=== PATIENT | male | born 1985 | race Caucasian/White ===

== ENCOUNTER 2016-06-25 13:09 | Inpatient (IN) | payer MEDICAID ==
[~2016-06-25] VITALS: Ht 175.3 cm; Wt 100.7 kg
[2016-06-25] MEDS ORDERED: PANTOPRAZOLE 80 MG in SODIUM CHLORIDE 0.9% 100 ML IV SCH (13:40)
[2016-06-25] MEDS ORDERED: PANTOPRAZOLE 80 MG in SODIUM CHLORIDE 0.9% 50 ML IVPB ONE (13:40)
[2016-06-25] MEDS ORDERED: SODIUM CHLORIDE 0.9% 1,000 ML IV ONE ×2 (13:40→15:42)
[2016-06-25] MEDS ORDERED: SODIUM CHLORIDE FLUSH 10ML SYR IVF ONE (14:00)
[2016-06-25] MEDS ORDERED: SODIUM CHLORIDE 0.9% 1,000ML IVBOLUS ONE ×2 (14:00→16:00)
[2016-06-25] MEDS ORDERED: ONDANSETRON 2MG/ML, 2ML IVPush ONE (14:00)
[2016-06-25] MEDS ORDERED: ONDANSETRON 2MG/ML, 2ML ONE (14:14)
[2016-06-25 14:35] LABS: ASPARTATE AMINO TRANSFERASE 97 U/L (15-37); BLOOD UREA NITROGEN 73 mg/dL (7-18)
[2016-06-25 14:53] LABS: DIFF TOTAL CELLS COUNTED 100 CELL DIFF
[2016-06-25 14:57] LABS: VERIFY COUNTS? YES
[2016-06-25] MEDS ORDERED: PROMETHAZINE 25 MG/ML, 1ML ONE (15:12)
[2016-06-25] MEDS ORDERED: PROMETHAZINE 25 MG/ML, 1ML IM ONE (15:30)
[2016-06-25] MEDS ORDERED: SODIUM CHLORIDE FLUSH 10ML SYR IVF PRN (16:00)
[2016-06-25] MEDS ORDERED: morphine SULFATE 10 MG/ML, 1ML IVPush PRN (16:30)
[2016-06-25] MEDS ORDERED: POLYETHYLENE GLYCOL 17 GM PACKET PO PRN (16:30)
[2016-06-25] MEDS ORDERED: OXYcodone IR 5MG TABLET PO PRN (16:30)
[2016-06-25] MEDS ORDERED: BISACODYL 10 MG SUPP PR PRN (16:30)
[2016-06-25] MEDS ORDERED: ENALAPRILAT 1.25 MG/ML, 2ML IVPush PRN (16:30)
[2016-06-25] MEDS ORDERED: ONDANSETRON 2MG/ML, 2ML IVPush PRN (16:30)
[2016-06-25] MEDS ORDERED: DOCUSATE 100 MG CAPSULE PO PRN (16:30)
[2016-06-25] MEDS: NICOTINE 7 MG/24 HR PATCH.TD24 TD SCH (17:30)
[2016-06-25 17:50] LABS: DAU SCREEN DISCLAIMER
[2016-06-25] MEDS: D5%-0.9% NACL+KCL 20MEQ 1,000 ML IV SCH (18:32)
[2016-06-25 21:07] VITALS: BP 127/82
[2016-06-26 01:06] VITALS: BP 138/82
[2016-06-26] MEDS: PANTOPRAZOLE 80 MG in SODIUM CHLORIDE 0.9% 100 ML IV SCH ×3 (01:18→21:48)
[2016-06-26] MEDS: D5%-0.9% NACL+KCL 20MEQ 1,000 ML IV SCH ×4 (01:18→21:47)
[2016-06-26 07:04] VITALS: BP 127/80
[2016-06-26 10:42] LABS: BLOOD UREA NITROGEN 31 mg/dL (7-18)
[2016-06-26 10:46] LABS: ASPARTATE AMINO TRANSFERASE 115 U/L (15-37)
[2016-06-26 13:31] VITALS: BP 122/68
[2016-06-26] MEDS: NICOTINE 7 MG/24 HR PATCH.TD24 TD SCH (17:30)
[2016-06-26 19:18] VITALS: BP 127/67
[2016-06-27 04:28] VITALS: BP 101/64
[2016-06-27] MEDS: D5%-0.9% NACL+KCL 20MEQ 1,000 ML IV SCH ×2 (04:38→10:40)
[2016-06-27 06:55] VITALS: BP 124/71
[2016-06-27] MEDS ORDERED: PANTOPROZOLE 40MG TABLET PO SCH (08:30)
[2016-06-27 10:42] LABS: HEP B SURF. AB > 1000.0 mIU/mL (0.0-10.0)
[2016-06-27 11:17] LABS: HEPATITIS C VIRUS ANTIBODY Nonreactive (Nonreactive)
[2016-06-27 12:31] VITALS: BP 131/75
[2016-06-27] MEDS ORDERED: OMEP-110 PO (14:30)
== END 2016-06-27 15:43 | disposition home or self-care (01) | DRG 368 ==
LOC: ED 16:17 → EDIP 16:18 → 4EST 17:20
PROVIDERS: ADMIT Internal Medicine; ATTEND Internal Medicine
DX: K22.6 Gastro-esophageal laceration-hemorrhage syndrome (principal); N17.0 Acute kidney failure with tubular necrosis; E87.2 Acidosis; E87.1 Hypo-osmolality and hyponatremia; R65.10 Systemic inflammatory response syndrome (SIRS) of non-infectious origin without acute organ dysfunction; K21.9 Gastro-esophageal reflux disease without esophagitis; E86.0 Dehydration; F15.10 Other stimulant abuse, uncomplicated; E83.52 Hypercalcemia; F17.210 Nicotine dependence, cigarettes, uncomplicated; Z71.51 Drug abuse counseling and surveillance of drug abuser; Z71.6 Tobacco abuse counseling
CPT/HCPCS: 36415; 74022; 76700; 80053; 80061; 80307; 81001; 83036; 83690; 83735; 84439; 84443; 85014; 85018; 85025; 85610; 85730; 86677; 86705; 86706; 86709; 86803; 86850; 86900; 87340; 93005; 96365; 96366; 96368; 96375; J2405; J2550; C9113; J3480; J7030

== ENCOUNTER 2017-10-28 00:08 | Emergency (ER) | payer MEDICAID ==
[~2017-10-28] VITALS: Ht 177.8 cm; Wt 87.0 kg
[~2017-10-28 00:08] MED LIST: OMEP-110 PO
[2017-10-28 00:15] VITALS: BP 131/80
[2017-10-28] MEDS ORDERED: AZITHROMYCIN 500 MG TABLET PO ONE (00:30)
[2017-10-28] MEDS ORDERED: CEFTRIAXONE 250 MG IM ONE (00:30)
[2017-10-28] MEDS ORDERED: CEFTRIAXONE 250 MG ONE (00:45)
[2017-10-28] MEDS ORDERED: AZITHROMYCIN 250 MG TABLET ONE (00:46)
[2017-10-28 01:06] LABS: CULTURE INDICATED? YES; MICROSCOPIC AUTO
== END 2017-10-28 01:01 | disposition home or self-care (01) ==
LOC: ED 00:35
DX: A56.01 Chlamydial cystitis and urethritis (principal); A54.01 Gonococcal cystitis and urethritis, unspecified
CPT/HCPCS: 81001; 87086; 96372; 99284; J0696

== ENCOUNTER 2018-02-10 19:41 | Emergency (ER) | payer MEDICAID ==
[~2018-02-10] VITALS: Ht 175.3 cm; Wt 92.4 kg
[2018-02-10] MEDS ORDERED: AZITHROMYCIN 500 MG TABLET ONE (20:26)
[2018-02-10] MEDS ORDERED: CEFTRIAXONE 250 MG ONE (20:26)
[2018-02-10] MEDS ORDERED: LIDOCAINE-MPF 1%, 5ML ONE (20:26)
[2018-02-10] MEDS ORDERED: CEFTRIAXONE 250 MG IM ONE (20:30)
[2018-02-10] MEDS ORDERED: PLEASE ENTER HEIGHT AND WEIGHT MC SCH (20:30)
[2018-02-10] MEDS ORDERED: AZITHROMYCIN 250 MG TABLET PO ONE (20:30)
[2018-02-10 20:47] VITALS: BP 135/74
== END 2018-02-10 21:09 | disposition home or self-care (01) ==
LOC: ED 20:55
DX: N34.1 Nonspecific urethritis (principal); R30.0 Dysuria
CPT/HCPCS: 87491; 87591; 96372; 99283; J0696

== ENCOUNTER 2019-10-19 04:58 | Emergency (ER) | payer SELFPAY ==
[~2019-10-19] VITALS: Ht 175.3 cm; Wt 96.8 kg
[2019-10-19] MEDS ORDERED: CEFTRIAXONE 250 MG ONE (05:45)
[2019-10-19] MEDS ORDERED: AZITHROMYCIN 250 MG TABLET ONE (05:46)
[2019-10-19] MEDS ORDERED: AZITHROMYCIN 500 MG TABLET PO ONE (06:00)
[2019-10-19] MEDS ORDERED: CEFTRIAXONE 1,000 MG IM ONE (06:00)
[2019-10-19 06:18] VITALS: BP 130/72
== END 2019-10-19 06:20 | disposition home or self-care (01) ==
LOC: ED 06:14
DX: A57 Chancroid (principal)
CPT/HCPCS: 36415; 86592; 86780; 87491; 87591; 96372; 99283; J0696

== ENCOUNTER 2019-10-21 19:28 | Emergency (ER) | payer SELFPAY ==
[~2019-10-21] VITALS: Ht 175.3 cm; Wt 93.8 kg
[2019-10-21 19:46] VITALS: BP 128/80
[2019-10-21] MEDS ORDERED: BICILLIN-LA 2,400,000 UNITS/4 ML IM ONE (21:00)
== END 2019-10-21 21:35 | disposition home or self-care (01) ==
LOC: ED 21:29
DX: A51.0 Primary genital syphilis (principal); F17.200 Nicotine dependence, unspecified, uncomplicated
CPT/HCPCS: 96372; 99283; J0561

== ENCOUNTER 2019-10-27 03:47 | Emergency (ER) | payer SELFPAY ==
[~2019-10-27] VITALS: Ht 177.8 cm; Wt 95.4 kg
[2019-10-27 03:51] VITALS: BP 142/83
[2019-10-27] MEDS ORDERED: HYDROcodone/APAP 5/325 TABLET PO PRN (04:00)
[2019-10-27] MEDS ORDERED: IBUPROFEN 600 MG TABLET PO ONE (04:00)
[2019-10-27] MEDS ORDERED: IBUPROFEN 600 MG TABLET ONE (04:07)
[2019-10-27] MEDS ORDERED: HYDROcodone/APAP 5/325 TABLET ONE (04:07)
--- NOTE | 2019-10-27 04:18 | NUR ---
po pain meds given pt in nad at this time
--- NOTE | 2019-10-27 04:23 | NUR ---
pt states that he punched the ground
== END 2019-10-27 05:22 ==
LOC: ED 04:40
DX: S62.336A Displaced fracture of neck of fifth metacarpal bone, right hand, initial encounter for closed fracture (principal); S60.511A Abrasion of right hand, initial encounter; F17.210 Nicotine dependence, cigarettes, uncomplicated; X58.XXXA Exposure to other specified factors, initial encounter; Y93.89 Activity, other specified; Y92.410 Unspecified street and highway as the place of occurrence of the external cause; Y99.8 Other external cause status
CPT/HCPCS: 29125; 99283; 99406

== ENCOUNTER 2020-03-03 22:13 | Emergency (ER) | payer SELFPAY ==
[~2020-03-03] VITALS: Ht 177.8 cm; Wt 96.5 kg
[2020-03-03 22:23] VITALS: BP 124/68
--- NOTE | 2020-03-03 22:42 | NUR ---
PT STATES SHE HAD INTERCOURSE C BOYFRIEND WHO HAD RECENTLY HAD INTERCOUSE C ANOTHER PARTNER C A HX OF SYPHILLIS. DENIES ANY S/S.
[2020-03-03] MEDS ORDERED: BICILLIN-LA 2,400,000 UNITS/4 ML IM ONE (23:00)
== END 2020-03-03 23:28 | disposition home or self-care (01) ==
LOC: ED 23:00
DX: Z20.2 Contact with and (suspected) exposure to infections with a predominantly sexual mode of transmission (principal); F17.200 Nicotine dependence, unspecified, uncomplicated
CPT/HCPCS: 96372; 99283; J0561